=== PATIENT | female | born 2000 | race Caucasian/White ===

== ENCOUNTER 2020-05-23 14:53 | Inpatient (IN) | payer MEDICAID, OTHER ==
[~2020-05-23] VITALS: Ht 154.9 cm; Wt 110.4 kg
[~2020-05-23 14:53] MED LIST: NOCURR
[2020-05-23] MEDS ORDERED: DEPOP150I IM (15:11)
[2020-05-23 16:08] LABS: BASOPHILS % (AUTO) 0.8 % (0.0-2.0); EOSINOPHILS % (AUTO) 1.8 % (1.0-6.0); HEMATOCRIT 39.2 % (36-46); HEMOGLOBIN 12.9 g/dL (12.0-16.0); LYMPHOCYTES # (AUTO) 2.2 K/uL (1.0-4.8); LYMPHOCYTES % (AUTO) 24.3 % (22.0-44.0); MEAN CORPUSCULAR HEMOGLOBIN 30.5 pg (26.0-34.0); MEAN CORPUSCULAR HGB CONC 32.9 G/dL (31.0-37.0); MEAN CORPUSCULAR VOLUME 93 fL (80-100); MONOCYTES # (AUTO) 0.5 K/uL (0.1-1.0); MONOCYTES % (AUTO) 5.3 % (2.0-9.0); NEUTROPHILS # (AUTO) 6.2 K/uL (1.8-7.7); NEUTROPHILS % (AUTO) 67.8 % (40.0-70.0); PLATELET COUNT (AUTO) 245 K/uL (150-450); RED BLOOD CELL COUNT(AUTO) 4.23 MIL/uL (4.00-5.20); RED CELL DISTRIBUTION WIDTH 13.5 % (11.5-14.5)
[2020-05-23 16:16] LABS: ANION GAP 11 mmol/L (8-16); CALCIUM, TOTAL 9.2 mg/dL (8.8-10.5); CARBON DIOXIDE 23 mmol/L (22-29); CHLORIDE 106 mmol/L (98-107); CREATININE 0.74 mg/dL (0.60-1.30); GLOMERULAR FILTR. RATE CALC > 60 mL/min (>60); GLUCOSE,RANDOM 89 mg/dL (70-110); POTASSIUM 3.8 mmol/L (3.5-5.1); SODIUM SERUM 140 mmol/L (136-145); UREA NITROGEN, BLOOD 14 mg/dL (7-18)
[2020-05-23 16:24] LABS: ALANINE AMINOTRANSFERASE 21 U/L (12-78); ALBUMIN 3.8 g/dL (3.4-5.0); ALKALINE PHOSPHATASE 79 U/L (46-116); ASPARTATE AMINOTRANSFERASE 10 U/L (15-37); BILIRUBIN,TOTAL 0.4 mg/dL (0.1-1.0); TOTAL PROTEIN, SERUM 7.3 g/dL (6.4-8.2)
[2020-05-23] MEDS ORDERED: QUEtiapine FUMARATE 100 MG TABLET PO PRN (21:00)
[2020-05-23] MEDS ORDERED: LORazepam 2 MG TABLET PO PRN (21:00)
[2020-05-23 21:26] LABS: AMPHET/METH SCREEN,URINE NEGATIVE (NEGATIVE); BARBITURATE SCREEN, URINE NEGATIVE (NEGATIVE); BENZODIAZEPINES SCREEN,URINE NEGATIVE (NEGATIVE); CANNABINOID SCREEN,URINE NEGATIVE (NEGATIVE); COCAINE SCREEN,URINE NEGATIVE (NEGATIVE); METHADONE SCREEN, URINE NEGATIVE (NEGATIVE); OPIATE SCREEN,URINE NEGATIVE (NEGATIVE)
[2020-05-23 21:30] LABS: PHENCYCLIDINE SCREEN,URINE NEGATIVE (NEGATIVE)
[2020-05-24] VITALS: BP 134/78
[2020-05-24] MEDS ORDERED: MAG HYDROX/AL HYDROX/SIMETH ES 30 ML SUSPENSION UDCUP PO PRN (07:15)
[2020-05-24] MEDS ORDERED: LOPERAMIDE HCL 2 MG CAPSULE PO PRN (07:15)
[2020-05-24] MEDS ORDERED: DOCUSATE SODIUM 100 MG CAPSULE PO PRN (07:15)
[2020-05-24] MEDS ORDERED: NICOTINE 14 MG/24 HOUR PATCH TD PRN (07:15)
[2020-05-24] MEDS ORDERED: MAGNESIUM HYDROXIDE SUSPENSION 30 ML UDCUP PO PRN (07:15)
[2020-05-24] MEDS ORDERED: ALBUTEROL SULFATE HFA 90 MCG/PUFF 8 GM INHALER IH PRN (07:15)
[2020-05-24] MEDS ORDERED: IBUPROFEN 400 MG TABLET PO PRN (07:15)
[2020-05-24] MEDS ORDERED: ONDANSETRON HCL 4 MG TABLET PO PRN (07:15)
[2020-05-24] MEDS ORDERED: PETROLATUM,WHITE 28 GM JELLY TP PRN (07:15)
[2020-05-24] MEDS ORDERED: ACETAMINOPHEN 325 MG TABLET PO PRN (07:15)
[2020-05-24] MEDS ORDERED: GuaiFENesin/D-METHORPHAN [SUGAR-FREE] 200-20MG/10 ML SYRUP UDCUP PO PRN (07:15)
[2020-05-24] MEDS ORDERED: CloNIDine HCL 0.1 MG TABLET PO PRN (07:15)
[2020-05-24 08:17] VITALS: BP 134/74
[2020-05-24 08:37] LABS: CHOL/HDL RATIO 4.3 (3.9-5.7)
[2020-05-24] MEDS: CITALOPRAM HYDROBROMIDE 10 MG TABLET PO SCH (13:33)
[2020-05-24 16:10] VITALS: BP 106/64
[2020-05-24] MEDS: ZOLPIDEM TARTRATE 10 MG TABLET PO PRN (20:01)
[2020-05-24] MEDS: OLANZapine 5 MG TABLET PO SCH (20:01)
[2020-05-25 01:15] VITALS: BP 102/73
[2020-05-25 08:10] VITALS: BP 120/78
[2020-05-25] MEDS: CITALOPRAM HYDROBROMIDE 10 MG TABLET PO SCH (08:20)
[2020-05-25 16:05] VITALS: BP 121/68
[2020-05-25] MEDS: OLANZapine 5 MG TABLET PO SCH (20:11)
[2020-05-25] MEDS: ZOLPIDEM TARTRATE 10 MG TABLET PO PRN (20:58)
[2020-05-26 06:22] VITALS: BP 108/71
[2020-05-26] MEDS ORDERED: CITA10TA99 PO (07:57)
[2020-05-26] MEDS ORDERED: OLAN5TAB27 PO (07:57)
[2020-05-26] MEDS: CITALOPRAM HYDROBROMIDE 10 MG TABLET PO SCH (08:09)
[2020-05-26 08:11] VITALS: BP 110/66
== END 2020-05-26 14:20 | disposition home or self-care (01) | DRG 751 ==
LOC: EMS 14:55 → B3A 21:00
DX: F33.3 Major depressive disorder, recurrent, severe with psychotic symptoms (principal); R45.851 Suicidal ideations; M10.9 Gout, unspecified; F43.10 Post-traumatic stress disorder, unspecified
CPT/HCPCS: 87426; G0480

== ENCOUNTER 2020-12-21 23:54 | Emergency (ER) | payer MEDICAID, OTHER ==
[~2020-12-21] VITALS: Ht 157.5 cm; Wt 113.6 kg
[~2020-12-21 23:54] MED LIST changes: +CITA10TA99 PO; -NOCURR; +OLAN5TAB27 PO
[2020-12-22 00:45] VITALS: BP 135/88
[2020-12-22] MEDS ORDERED: ONDANSETRON HCL 4 MG TABLET PO ONE (00:45)
[2020-12-22] MEDS ORDERED: ACETAMINOPHEN 500 MG TABLET PO ONE (00:45)
== END 2020-12-22 01:01 | disposition home or self-care (01) ==
LOC: EMS 23:54
DX: R51.9 Headache, unspecified (principal); R42 Dizziness and giddiness; F32.9 Major depressive disorder, single episode, unspecified; F17.210 Nicotine dependence, cigarettes, uncomplicated; F12.90 Cannabis use, unspecified, uncomplicated; V43.62XA Car passenger injured in collision with other type car in traffic accident, initial encounter; Y93.89 Activity, other specified; Y92.89 Other specified places as the place of occurrence of the external cause; Y99.8 Other external cause status
CPT/HCPCS: 99283; Q0162

== ENCOUNTER 2022-06-24 15:12 | Emergency (ER) | payer OTHER ==
[~2022-06-24] VITALS: Ht 157.5 cm; Wt 127.3 kg
[~2022-06-24 15:12] MED LIST changes: -OLAN5TAB27 PO; +OLAN5TAB77 PO
[2022-06-24 15:40] VITALS: BP 144/67
== END 2022-06-24 17:50 | disposition left against medical advice (07) ==
LOC: EMS 15:18
DX: Z53.21 Procedure and treatment not carried out due to patient leaving prior to being seen by health care provider (principal)